=== PATIENT | male | born 1970 | race Caucasian/White ===

== ENCOUNTER 2018-06-01 12:15 | Emergency (ER) | payer OTHER ==
[~2018-06-01] VITALS: Ht 172.7 cm; Wt 76.2 kg
[~2018-06-01 12:15] MED LIST: AUGMENTIN 875875 MG PO; MOBIC15 M1 PO; PERCOCET 325 MG1 TAB PO; PREDNISONE 20MG20 MG PO
[2018-06-01 12:33] VITALS: BP 132/74
--- NOTE | 2018-06-01 13:22 | RADIOLOGY REPORT ---
EXAMINATION: XR HAND, LEFT CLINICAL INFORMATION: Fracture. Pain at base of thumb after fall COMPARISON: None TECHNIQUE: PA, lateral, and oblique views of the left hand. FINDINGS: The bones and soft tissues are normal. No fracture. Alignment is anatomic. Joint spaces are maintained. No erosions or soft tissue calcifications. IMPRESSION: Normal left hand.
--- NOTE | 2018-06-01 13:38 | ED HAND/WRIST INJURY COMPLAINT ---
History of Present Illness General Chief Complaint: Hand or Wrist Injury Stated Complaint: LEFT HAND INJURY Source: patient Exam Limitations: no limitations Vital Signs & Intake/Output Vital Signs & Intake/Output Vital Signs Date Time Temp Pulse Resp B/P B/P Pulse O2 O2 Flow FiO2 Mean Ox Delivery Rate 06/01 1233 98.7 75 18 132/74 98 Room Air Allergies Coded Allergies: No Known Drug Allergies (NKDA 01/07/18) Reconcile Medications Meloxicam (Mobic) 15 MG TABLET 1 TAB PO DAILY PRN pain Prednisone 20 MG TABLET 2 TAB PO DAILY ALLERGIC REATCION Triage Note: PT FROM HOME C/O LEFT THUMB PAIN SINCE LAST NIGHT AFTER TRIPPING IN THE DARK ON HIS SHOES, FALLING FORWARD LANDING ON THUMB. PTS VSS. PT HAS +CMS, +2 PULSES. DASHA VILLALOBOS IN TRIAGE FOR EVAL. Triage Nurses Notes Reviewed? yes Occurred: yesterday Duration: day(s): (1-2), constant, continues in ED Timing: single episode today Injury Environment: home Severity: mild, moderate Severity Numbers: 6 Pain/Injury Location: Left: 1st finger. Context: fall Method of Injury: fall HPI: 48-year-old male no medical history presents for evaluation of left thumb pain. Patient states that last night he tripped and fell onto his left hand and thumb. He reports pain at the base of the thumb pain is worse with movement. Denies any swelling numbness or tingling no wrist pain or elbow pain. There was no head strike or loss of consciousness no other injuries is not taking any medicine for his symptoms (Augusto Donnelly) Past History Travel History Traveled to [place] past 21 day No Medical History Any Pertinent Medical History? see below for history Neurological: NONE EENT: NONE Cardiovascular: NONE Respiratory: NONE Gastrointestinal: NONE Renal: NONE Musculoskeletal: NONE Psychiatric: NONE Endocrine: NONE Blood Disorders: NONE Surgical History Surgical History: non-contributory Psychosocial History What is your primary language Ivorian Tobacco Use: Never used Family History Hx Contributory? No (Augusto Donnelly) Review of Systems Review of Systems Constitutional: Reports: no symptoms. EENTM: Reports: no symptoms. Respiratory: Reports: no symptoms. Cardiovascular: Reports: no symptoms. GI: Reports: no symptoms. Genitourinary: Reports: no symptoms. Musculoskeletal: Reports: joint pain, joint swelling, muscle pain, muscle stiffness. Skin: Reports: no symptoms. Neurological/Psychological: Reports: no symptoms. Hematologic/Endocrine: Reports: no symptoms. Immunologic/Allergic: Reports: no symptoms. All Other Systems: Reviewed and Negative (Augusto Donnelly) Physical Exam Physical Exam General Appearance: well developed/nourished, no apparent distress, alert, awake Head: atraumatic, normal appearance Eyes: Bilateral: normal appearance, EOMI. Ears, Nose, Throat: normal pharynx, hearing grossly normal Neck: normal inspection, supple, full range of motion Cardiovascular/Respiratory: regular rate/rhythm Back: normal inspection, normal range of motion Shoulder Left: normal range of motion, normal inspection Shoulder Right: normal range of motion, normal inspection Elbow Left: normal range of motion, normal inspection Elbow Right: normal range of motion, normal inspection Forearm Left: normal range of motion, normal inspection Forearm Right: normal range of motion, normal inspection Wrist Left: normal range of motion, normal inspection Wrist Right: normal range of motion, normal inspection Hand Left: normal inspection, limited range of motion, tender, 1st finger, there is tenderness at the base of the left thumb. No soft tissue swelling. Range of motion of the thumb is reduced due to pain. Full range of motion of the remaining digits. No abrasions will range of motion of the wrist intact neurovascular supply intact Hand Right: normal inspection, normal range of motion Neurologic/Tendon: normal sensation, normal motor functions, normal tendon functions, responds to pain, no evidence tendon injury, no pulse deficit Skin: intact, normal color, warm/dry Lymphatic: no anterior cervical janes (Augusto Donnelly) Progress Differential Diagnosis: contusion, dislocation, fracture, paronychia, septic arthritis, sprain, tenosynovitis Plan of Care: Orders Procedure Date/time Status Durable Medical Equipment 06/01 2334 Active Patient is here after a fall he has left thumb pain. He denies any head strike or loss of consciousness. On exam he does have reduced range of motion of the thumb no snuffbox tenderness neurovascular supply is intact there is no visible swelling. X-rays were obtained and are negative for fracture. Patient will be treated with a thumb spica splint. Rest ice elevation compression Tylenol improvement. Gradually increase range of motion as tolerated. Discussed return precautions patient agrees Diagnostic Imaging: Viewed by Me: Radiology Read. Discussed w/RAD: Radiology Read. Radiology Impression: PATIENT: COMA,[facility] PRESENT AGE: 48 PATIENT ACCOUNT NO: [id number] : 74 LOCATION: [facility] ORDERING PHYSICIAN: Augusto LOU SERVICE DATE: 06/01/18 EXAM TYPE: RAD - XRY-HAND, LEFT EXAMINATION: XR HAND, LEFT CLINICAL INFORMATION: Fracture. Pain at base of thumb after fall COMPARISON: None TECHNIQUE: PA, lateral, and oblique views of the left hand. FINDINGS: The bones and soft tissues are normal. No fracture. Alignment is anatomic. Joint spaces are maintained. No erosions or soft tissue calcifications. IMPRESSION: Normal left hand. DICTATED BY: Chris Day MD DATE/TIME DICTATED:06/01/181316 LOFT PATTERNMAKER:KAITLIN DATE/TIME TRANSCRIBED:06/01/181316 CONFIDENTIAL, DO NOT COPY WITHOUT APPROPRIATE AUTHORIZATION. <Electronically signed in Other Vendor System> SIGNED BY: Chris Day MD 06/01/18 1322 (Augusto Donnelly) Departure Departure Disposition: HOME OR SELF CARE Condition: Stable Clinical Impression Primary Impression: Hand sprain Qualifiers: Encounter type: subsequent encounter Laterality: left Qualified Code: S63.92XD - Sprain of unspecified part of left wrist and hand, subsequent encounter Referrals: Lynette Lau MD (PCP/Family) Additional Instructions: Rest, apply ice 15-20 minutes every few hours. Wear splint. Tylenol and ibuprofen for pain. Make a follow-up with your doctor in a few days for recheck monitor symptoms return with any concerns. Departure Forms: Customer Survey General Discharge Information (Augusto Donnelly) PA/ELECTRICAL EQUIPMENT TECHNICIAN Co-Sign Statement Statement: ED Attending supervision documentation- [] I saw and evaluated the patient. I have also reviewed all the pertinent lab results and diagnostic results. I agree with the findings and the plan of care as documented in the PA's/ELECTRICAL EQUIPMENT TECHNICIAN's documentation. [x] I have reviewed the ED Record and agree with the PA's/ELECTRICAL EQUIPMENT TECHNICIAN's documentation. [] Additions or exceptions (if any) to the PAs/ELECTRICAL EQUIPMENT TECHNICIAN's note and plan are summarized below: [] (Eudard TAN,[facility])
== END 2018-06-01 14:16 ==
LOC: ERH 12:15
DX: S63.92XA Sprain of unspecified part of left wrist and hand, initial encounter (principal); W18.09XA Striking against other object with subsequent fall, initial encounter; Y93.9 Activity, unspecified; Y92.9 Unspecified place or not applicable
CPT/HCPCS: 73130-LT